=== PATIENT | female | born 1970 | race Caucasian/White ===

== ENCOUNTER 2023-09-07 08:13 | Emergency (ER) | payer BC ==
[~2023-09-07] VITALS: Ht 175.3 cm; Wt 81.7 kg
[2023-09-07 08:25] VITALS: BP 109/43; PULSE 66; RESP 18; TEMP 97; O2SAT 100
== END 2023-09-07 14:08 | disposition left against medical advice (07) ==
LOC: ER 08:14
DX: S01.21XA Laceration without foreign body of nose, initial encounter (principal); Z53.21 Procedure and treatment not carried out due to patient leaving prior to being seen by health care provider; X58.XXXA Exposure to other specified factors, initial encounter; Y93.89 Activity, other specified; Y92.89 Other specified places as the place of occurrence of the external cause; Y99.8 Other external cause status
CPT/HCPCS: 99281

== ENCOUNTER 2024-01-09 05:47 | Day surgery (SDC) | payer BC ==
[2024-01-04 09:33] LABS: BASOPHILS % (AUTO) 0.5 % (0-1); EOSINOPHILS # (AUTO) 0.1 X10'3 (0-0.9); EOSINOPHILS % (AUTO) 1.2 % (0-6); LYMPHOCYTES # (AUTO) 2.1 X10'3 (1.1-4.8); MEAN CORPUSCULAR HEMOGLOBIN 32.7 PG (27.0-31.0); MEAN CORPUSCULAR VOLUME 96.3 FL (78-98); MEAN PLATELET VOLUME 8.4 FL (7.4-10.4); MONOCYTES # (AUTO) 0.5 X10'3 (0-0.9); MONOCYTES % (AUTO) 8.9 % (2-12); NEUTROPHILS # (AUTO) 3.2 X10'3 (1.8-7.7); NEUTROPHILS % (AUTO) 54.4 % (42-75); PRE OP HEMATOCRIT 38.1 % (35.0-45.0); PRE OP HEMOGLOBIN 12.9 g/dL (12.0-16.0); PRE OP PLATELET COUNT 187 X10'3 (140-440); PRE OP WHITE BLOOD COUNT 5.9 10'3 (4.8-10.8); RED BLOOD COUNT 3.96 X10'6 (4.20-5.60); RED CELL DISTRIBUTION WIDTH 13.8 % (11.5-14.5)
[2024-01-04 09:57] LABS: ALBUMIN/GLOBULIN RATIO 1.3 (1.1-1.5); ALKALINE PHOSPHATASE 46 IU/L (46-116); CHLORIDE 107 MMOL/L (99-107); PRE OP ALT 21 U/L (30-65); PRE OP ANION GAP 7 (8-16); PRE OP AST 13 U/L (10-37); PRE OP BILIRUB, TOTAL 0.5 MG/DL (0.0-1.0); PRE OP GLUCOSE 65 MG/DL (70-104); PRE OP POTASSIUM 4.2 MMOL/L (3.4-5.1); PRE OP SODIUM 144 MMOL/L (135-145); TOTAL CARBON DIOXIDE 30.3 MMOL/L (24-32); TOTAL PROTEIN 7.2 G/DL (6.4-8.2); eGFR 75 ML/MIN
[2024-01-04 10:05] LABS: BLOOD UREA NITROGEN 17 MG/DL (7-18); BUN/CREATININE RATIO 21.3 (10.0-20.0)
[~2024-01-09] VITALS: Ht 175.3 cm; Wt 80.6 kg
[~2024-01-09 05:47] MED LIST: ESCI20TA39 PO; LEVO112T39 PO; ROPI5TAB24 PO; SEMA2PEN SUBCUT; cefazolin 2gm/D5W 100mL 100 ML IV ONE
[2024-01-09 06:15] VITALS: BP 105/51; PULSE 57; RESP 16; TEMP 97.3; O2SAT 99
[2024-01-09] MEDS: ringers solution, lacted 1,000 ML IV SCH (06:34)
[2024-01-09] MEDS: famotidine 20mg tablet PO ONE (06:34)
[2024-01-09] MEDS ORDERED: LIDOcaine 2% (20mg/ml) 5ml vial ONE ×3 (06:57→07:35)
[2024-01-09] MEDS ORDERED: BUPIVAcaine/PF 2.5mg/ml (0.25%) 10ml vial ONE ×2 (06:57→07:35)
[2024-01-09] MEDS ORDERED: midazolam 1 mg/ML 2ml injection ONE (07:59)
[2024-01-09] MEDS ORDERED: fentaNYL/PF 50MCG/1 ML 2ML syringe ONE (07:59)
[2024-01-09] MEDS ORDERED: proCHLORperazine 10 MG/2 ml inj IV PRN (08:05)
[2024-01-09] MEDS ORDERED: morphine 2 MG/ML inj. syringe IV PRN (08:05)
[2024-01-09] MEDS ORDERED: ringers solution, lacted 1,000 ML IV SCH (08:05)
[2024-01-09] MEDS ORDERED: ondansetron/PF 4mg/2ml inj IV PRN (08:05)
[2024-01-09] MEDS ORDERED: meperidine/PF 25mg/ml syringe IV PRN ×3 (08:05)
[2024-01-09] MEDS ORDERED: morphine 4 MG/ML inj SYRINge IV PRN (08:05)
[2024-01-09] MEDS: BUPIVAcaine/PF 2.5mg/ml (0.25%) 10ml vial IJ ONE (08:40)
[2024-01-09] MEDS: LIDOcaine 2% (20mg/ml) 5ml vial SQ ONE (08:40)
[2024-01-09] MEDS ORDERED: propofol inj 20 ML IV ONE (08:44)
[2024-01-09 08:56] VITALS: BP 85/45; PULSE 66; RESP 15; O2SAT 96
[2024-01-09 09:00] VITALS: BP 89/50; PULSE 71; RESP 16; O2SAT 97
[2024-01-09 09:10] VITALS: BP 92/51; PULSE 61; RESP 19; O2SAT 97
[2024-01-09 09:20] VITALS: BP 97/53; PULSE 58; RESP 16; O2SAT 98
== END 2024-01-09 09:46 | disposition home or self-care (01) ==
LOC: PAS 05:47
PROVIDERS: ATTEND Orthopaedic Surgery Hand Surgery
DX: M19.042 Primary osteoarthritis, left hand (principal); M67.441 Ganglion, right hand; E03.9 Hypothyroidism, unspecified; F32.A Depression, unspecified; Z87.891 Personal history of nicotine dependence; Z79.891 Long term (current) use of opiate analgesic; Z79.899 Other long term (current) drug therapy; Z90.710 Acquired absence of both cervix and uterus; Z98.890 Other specified postprocedural states
CPT/HCPCS: 26160; 26860; 36415; 80053; 82948; 85025; C1713; J0690; J2250; J2704; J3010; J3490; J7030; J7120; Z7506; Z7512; A4215; A4618; A7000; C1769